=== PATIENT | male | born 1950 | race African-American/Black ===

== ENCOUNTER 2019-02-24 12:04 | Inpatient (IN) | payer MEDICARE, SELFPAY ==
[2019-02-24 12:42] VITALS: BP 130/77; PULSE 67; RESP 16; TEMP 37; BMI 30.2; BMI 30.3
[2019-02-24 13:47] VITALS: O2SAT 92
[2019-02-24 14:00] VITALS: BP 166/90; PULSE 80; RESP 16; TEMP 37.1
--- NOTE | 2019-02-24 14:20 | NEWVISION ---
Patient has D/C plan arranged by Vinh Pineda at [facility] on 03/05/2019 at 9am.
[2019-02-24 15:03] LABS: Absolute Lymphocyte Count 0.96 X10^3/ul (0.83-4.51); Absolute Neutrophil Count 2.6 X10^3/uL (2.0-7.7); Eosinophil# 0.18 X10^3/uL; Eosinophils% 4.4 % (0-5); Hematocrit 32.3 % (40-54); Hemoglobin 11.2 g/dl (13.0-16.5); Lymphocyte # 0.96 X10^3/ul (4.0); Lymphocyte % 23.5 % (19-41); Mean Corp Hgb Conc 34.7 g/gl (32-36); Mean Corpuscular Hgb 33.7 pg (27.0-32.0); Mean Corpuscular Volume 97.3 fL (80-94); Mean Platelet Vol. 10.1 fl (6.2-12.0); Monocyte# 0.37 X10^3/uL; Neutrophil # 2.57 X10^3/uL (2.7-7.7); Neutrophil % 62.9 % (47-70); Platelet Count 154 K/mm3 (150-450); RBC Distribution Width SD 47.5 fl (35.1-43.9); Red Blood Count 3.32 M/mm3 (4.6-6.2); White Blood Count 4.1 K/mm3 (4.4-11.0)
[2019-02-24 15:08] LABS: International Normalized Ratio 1.1; Prothrombin Time (Protime)PT. 14.3 SECONDS (11.7-14.9)
[2019-02-24 15:10] LABS: POSITIVE COUNT NO; POSITIVE DIFFERENTIAL NO; POSITIVE MORPHOLOGY NO
[2019-02-24 15:45] LABS: ALB/GLOB Ratio 0.7 RATIO (0.9-2.4); AST(SGOT) 45 U/L (15-37); Alanine Aminotransfer ALT/SGPT 37 U/L (16-61); Alkaline Phosphatase 74 U/L (45-117); Anion Gap 7 (5-15); BUN 32 mg/dL (7-18); Calcium,Total 7.9 mg/dL (8.5-10.1); Chloride 112 mmol/L (98-107); Creatinine, Serum 2.66 mg/dL (0.70-1.30); EST Glomerular Filtration Rate 25 mL/min (>60); Est Glom Filt Rate - Afr Amer 31 mL/min (>60); Estimated Creatinine Clearance 29.62 ml/min; Globulin 4.3 g/dL (2.2-4.2); Glucose 118 mg/dL (74-106); Potassium 3.8 mmol/L (3.5-5.1); Protein, Total 7.3 g/dL (6.4-8.2); Sodium Level 139 mmol/L (136-145)
--- NOTE | 2019-02-24 15:49 | EKG12_ITS ---
Test Reason : ADMISSION EKG Blood Pressure : / mmHG Vent. Rate : 061 BPM Atrial Rate : 061 BPM P-R Int : 216 ms QRS Dur : 096 ms QT Int : 430 ms P-R-T Axes : 046 011 022 degrees QTc Int : 432 ms Sinus rhythm with 1st degree A-V block Minimal voltage criteria for LVH, may be normal variant Borderline ECG Confirmed by SHERIF RIDDLE, ZOIE ([id number]), greeting card editor PRESTON BEST ([id number]) on 03/02/2019 1:54:16 PM Referred By: GALE Confirmed By:ZOIE GORMAN MD
--- NOTE | 2019-02-24 16:20 | NEWVISION ---
REPORT CALLED TO CONCEPCION CLEMENTS RN WITH NO QUESTIONS VOICED. PT TRANSFERRED TO [id number] VIA BED WITH ALL BELONGINGS. HOME MEDS SENT UP WITH DRY CHAIN WORKER.
[2019-02-24 16:22] LABS: HIV - WCH Non-Reactive (Nonreactive)
[2019-02-24 17:10] VITALS: BP 173/85; PULSE 69; RESP 18; TEMP 36.6
[2019-02-24 18:12] LABS: Bacteria 0 SEEN /hpf (None Seen); Mucous, Urine 0 SEEN /hpf (<or=2+); Red Blood Cells-Urine 0 SEEN /hpf (0-5)
[2019-02-24 18:16] LABS: Color, Urine Yellow (Yellow); Glucose, Dipstick Normal (Normal); Ketone-Dipstick Negative (Negative); Leukocyte Esterase-Dipstick Negative /ul (Negative); Nitrite-Dipstick Negative (Negative); Occult Blood-Urine Negative /ul (Negative); Protein-Dipstick 15 mg/dl (Negative); Urine Bilirubin Dipstick Negative (Negative); Urine Clarity Clear (Clear); Urine Urobilinogen 1 mg/dl (Normal)
[2019-02-24 18:29] LABS: Hyaline Cast 0-5 SEEN /lpf (0-5)
[2019-02-24 18:30] LABS: Squamous Epithelial Cells - UA 0-5 SEEN /hpf (0-5); White Blood Cells 0-5 SEEN /hpf (0-5)
--- NOTE | 2019-02-24 18:56 | PCM.HP.STD ---
Problem List (1) Hypertension Status: Chronic (2) Opiate dependence Status: Chronic (3) Crack cocaine use Status: Chronic Comment: daily (4) Hepatitis C Status: Chronic (5) Renal failure Status: Acute Qualifiers: Renal failure chronicity: unspecified chronicity Qualified Code(s): N19 - Unspecified kidney failure Comment: no previous lab available (6) Nephrolithiasis Status: Acute (7) Macrocytic anemia Status: Chronic (8) Metabolic acidosis Status: Acute (9) Hyperlipidemia Status: Chronic (10) Tobacco dependence Status: Chronic (11) BPH (benign prostatic hyperplasia) Status: Chronic History of Present Illness Date of Admission: 02/24/19 Chief Complaint: Presented to the [facility] office at [facility] requesting inpatient admission for acute opiate withdrawal The patient is a 68 year old M with a past medical history of hypertension, hyperlipidemia, nephrolithiasis, BPH, hepatitis C, opiate dependence x40 years, daily crack cocaine use and tobacco dependence who presented to the [facility] office at [facility] on 02/24/2019 requesting inpatient admission for acute opiate withdrawal. He resides in [facility]. He uses approximately 1 g of heroin daily and also uses crack cocaine daily. Currently he is snorting the heroin but in the past has been an IV drug user and does have a history of hepatitis C. He complained of diarrhea to the [facility] rep and when he found out he was going to be admitted he excused to himself to go to the restroom and he has been somnolent since then. I suspect he used heroin in the restroom. He now tells me the diarrhea went away. He is also c/o of being sweaty. No nausea, no restlessness, no piloerection, no chills. He was eating when I entered his room and eating well. He did not appear to be in any discomfort. He has been to rehab a few times in the past but, not for several years. the longest he has ever been clean is 2 weeks and he went back to using because of being in the wrong place with the wrong people. He has not considered whether or not he would consider inpt rehab. He was nodding off over his dinner plate when I entered the room and he did not arouse to calling his name. I had to shake him. Past Medical History Past Medical History (Chronic Problems): Chronic Problems Hypertension (Chronic) Opiate dependence (Chronic) Crack cocaine use (Chronic) daily Hepatitis C (Chronic) Macrocytic anemia (Chronic) Hyperlipidemia (Chronic) Tobacco dependence (Chronic) BPH (benign prostatic hyperplasia) (Chronic) Allergies No Known Allergies Allergy (Verified 02/24/19 13:43) Home Medications: Ambulatory Orders Medication Instructions Recorded Amlodipine [Norvasc] 10 mg PO DAILY 02/24/19 Ammonium Lactate [Amlactin] 1 applic TOPICAL DAILY PRN 02/24/19 Atorvastatin Calcium [Lipitor] 80 mg PO QHS 02/24/19 Tamsulosin HCl 0.4 mg PO DAILY 02/24/19 Surgical History: - - tells me he had surgery to remove a kidney stone Psychiatric History: No pertinent psych hx Lives: Friends Smoking Status: Current every day smoker Tobacco Use: Cigarettes Alcohol: Occasional Drugs: Heroin, - - Crack cocaine - *Family History Maternal History Items: No pertinent history Paternal History Items: No pertinent history Review of Systems Constitutional: Denies: Chills, Fever, Weakness, Weight Change HEENT: Denies: Head Aches, Sinus Congestion, Sinus Drainage Cardiovascular: Denies: Chest Pain, Edema, Light Headedness, Palpitations Respiratory: Denies: Cough, Shortness of breath at rest, Sputum production Gastrointestinal: Reports: Diarrhea - resolved after he went into the restroom and can out obtunded and sleepy......suspect strongly that he used in the [place]. Denies: Abdominal Pain, Nausea, Vomiting Genitourinary: Denies: Dysuria Musculoskeletal: Denies: Joint Pain, Joint Tenderness Skin: Denies: Jaundice, Rash, Wounds Neurological: Denies: Focal weakness, Numbness, Tingling, Seizures Psychiatric: Denies: Anxiety, Depression, Homicidal Ideations, Suicidal Ideations Hematologic/ Lymphatic: Denies: Easy Bruising, Easy Bleeding, Hx of blood clot VTE Information - Inpt Only VTE Present on Admission: No VTE Mechan Device Prophylaxis: Knee High ASHTYN Hose VTE Pharm Prophylaxis ordered?: Yes Patient Problems: Active and Suspected Problems Renal failure (Acute) no previous lab available Nephrolithiasis (Acute) Metabolic acidosis (Acute) - Physical Exam General: Cooperative, No apparent distress, Well developed, Well nourished, Lethargic, - - difficult to arouse HEENT: Atraumatic, EOMI, Normocephalic, - - pupils are pinpoint but reactive Oral: Moist Mucosa Neck: Supple, No JVD, Trachea Midline Lungs: Rhonchi Cardiovascular: Regular rate, Regular Rhythm, Normal S1, Normal S2, No murmurs, No rub noted, No Gallop Abdomen: Bowel Sounds Present, Soft, Non Tender, Non-Distended Extremities: No clubbing, No cyanosis, No edema, Peripheral Pulses Normal Skin: No rashes, - - many scars form old track paredes and old cellulitis and abscesses Musculoskeletal: No Muscle Wasting Neurological: Cranial nerves II-XII grossly intact, Neuro grossly intact Psych/Mental Status: Normal Affect, Appropriate Vital Signs Temp Pulse Resp BP Pulse Ox 97.8 F 69 18 173/85 H 92 02/24/19 17:10 02/24/19 17:10 02/24/19 17:10 02/24/19 17:10 02/24/19 13:47 Oxygen Delivery Method Room Air Weight: 229 lb 8.019 oz Body Mass Index (BMI) 30.2 Intake and Output for Last 24 Hours 02/22/19 02/23/19 02/24/19 23:59 23:59 23:59 Output Total 0 / 0 Balance 0 / 0 Laboratory Tests Past 24 Hrs 02/24/19 02/24/19 02/24/19 14:40 14:40 14:40 WBC 4.1 L RBC 3.32 L Hgb 11.2 L Hct 32.3 L MCV 97.3 H MCH 33.7 H MCHC 34.7 RDW 14.0 RDW Differential 47.5 H Plt Count 154 MPV 10.1 Immature Gran % (Auto) 0.200 Neut % (Auto) 62.9 Lymph % (Auto) 23.5 [place] % (Auto) 9.0 Eos % (Auto) 4.4 Baso % (Auto) 0.0 Absolute Neuts (auto) 2.6 Absolute Lymphs (auto) 0.96 Total Counted Not Reportable PT 14.3 INR 1.1 Sodium 139 Potassium 3.8 Chloride 112 H Carbon Dioxide 20.0 L Anion Gap 7 BUN 32 H Creatinine 2.66 H Estim Creat Clear Calc 29.62 Est GFR (MDRD) Af Amer 31 L Est GFR (MDRD) Non-Af 25 L BUN/Creatinine Ratio 12.0 Glucose 118 H Calcium 7.9 L Total Bilirubin 0.40 AST 45 H ALT 37 Alkaline Phosphatase 74 Total Protein 7.3 Albumin 3.0 L Globulin 4.3 H Albumin/Globulin Ratio 0.7 L Urine Color Urine Clarity Urine pH Ur Specific [place] Urine Protein Urine Glucose (UA) Urine Ketones Urine Occult Blood Urine Nitrite Urine Bilirubin Urine Urobilinogen Ur Leukocyte Esterase Urine RBC Urine WBC Ur Squamous Epith Cells Urine Bacteria Hyaline Casts Urine Mucus HIV 1&2 Antibody 02/24/19 02/24/19 14:40 16:00 WBC RBC Hgb Hct MCV MCH MCHC RDW RDW Differential Plt Count MPV Immature Gran % (Auto) Neut % (Auto) Lymph % (Auto) [place] % (Auto) Eos % (Auto) Baso % (Auto) Absolute Neuts (auto) Absolute Lymphs (auto) Total Counted PT INR Sodium Potassium Chloride Carbon Dioxide Anion Gap BUN Creatinine Estim Creat Clear Calc Est GFR (MDRD) Af Amer Est GFR (MDRD) Non-Af BUN/Creatinine Ratio Glucose Calcium Total Bilirubin AST ALT Alkaline Phosphatase Total Protein Albumin Globulin Albumin/Globulin Ratio Urine Color Yellow Urine Clarity Clear Urine pH 5.0 Ur Specific [place] 1.020 Urine Protein 15 H Urine Glucose (UA) Normal Urine Ketones Negative Urine Occult Blood Negative Urine Nitrite Negative Urine Bilirubin Negative Urine Urobilinogen 1 H Ur Leukocyte Esterase Negative Urine RBC 0 SEEN Urine WBC 0-5 SEEN Ur Squamous Epith Cells 0-5 SEEN Urine Bacteria 0 SEEN Hyaline Casts 0-5 SEEN Urine Mucus 0 SEEN HIV 1&2 Antibody Non-Reactive Assessment/Plan All Active Problems Renal failure (Acute) Nephrolithiasis (Acute) Metabolic acidosis (Acute) Impressions 1. ? acute opiate withdrawal - suspect he used while on the [facility] campus when he excused himself to go to the 2. Heroin dependence 3. Daily crack cocaine use 4. Lab consistent with stage IV renal failure 5. Macrocytic anemia 6. Hypertension 7. Hyperlipidemia 8. BPH 9. History of nephrolithiasis 10. Tobacco dependence 11. Metabolic acidosis-likely secondary to chronic renal failure Admitted to the [facility] program Suboxone taper ordered Clonidine 0.1 mg BID no Benzo's post void residual and if > 250 insert a morillo cath US of the kidneys and the bladder in the AM Hydralazine PRN for increased BP's Lipid panel and a repeat BMP in the AM EKG shows mild first degree AVB I informed the patient that his lab is consistent with stage 4 renal failure and I suspect this is due to non-compliance with anti-hypertensives and Crack cocaine use. He was unaware that he had kidney disease. Email Marketing Assistant consult for recommendations on renal diet Code Visit Inpatient E&M: 83946 Init Hosp L3
[2019-02-24 19:40] LABS: Amphetamine Urine VISTA NEGATIVE (<1000 ng/mL); Barbiturate Urine VISTA NEGATIVE (< 200 ng/mL); Benzodiazepine Urine VISTA NEGATIVE (< 200 ng/mL); Cocaine Urine VISTA POSITIVE (< 300 ng/mL); Ecstacy Urine VISTA NEGATIVE (< 500 ng/mL); Methadone Urine VISTA NEGATIVE (< 300 ng/mL); PCP Urine VISTA NEGATIVE (< 25 ng/mL); THC Urine VISTA NEGATIVE (< 50 ng/mL); Vista UDS pH Range 5
[2019-02-24] MEDS: Buprenorphine HCl 2 MG TAB.SUBL SL (20:28)
[2019-02-24] MEDS: amLODIPine 10 MG Tablet PO (20:28)
[2019-02-24 20:32] VITALS: PULSE 60
[2019-02-24 22:00] VITALS: BP 152/83; PULSE 61; RESP 16; TEMP 36.9
[2019-02-24] MEDS: Atorvastatin Calcium 80 MG Tablet PO (22:14)
[2019-02-24] MEDS: Heparin Injection (Vial) 5,000 UNIT/ML VIAL 5000 UNIT SC (22:14)
[2019-02-24] MEDS: cloNIDine HCl 0.1 MG Tablet PO (22:14)
[2019-02-25] VITALS (11 sets, daily range): BP systolic 146–178; BP diastolic 60–97; PULSE 56–67; RESP 16–18; TEMP 37.1–37.6; O2SAT 96–97
[2019-02-25] MEDS: hydrOXYzine PAM 25 MG Capsule 50 MG PO ×2 (00:10→06:10)
[2019-02-25] MEDS: hydrALAZINE 25 MG Tablet PO ×3 (01:29→17:15)
[2019-02-25] MEDS: Buprenorphine HCl 2 MG TAB.SUBL SL ×3 (03:14→19:32)
[2019-02-25] MEDS: Heparin Injection (Vial) 5,000 UNIT/ML VIAL 5000 UNIT SC ×3 (05:40→21:31)
--- NOTE | 2019-02-25 05:55 | US_ITS ---
STUDY: RENAL ULTRASOUND - COMPLETE REASON FOR EXAM: Male, 68 years old. Abnormal labs TECHNIQUE: Ultrasound evaluation of the kidneys was performed with real-time and static fraire-scale imaging. COMPARISON: None. FINDINGS: RIGHT KIDNEY: Normal location of the right kidney, which is normal in size. The right kidney measures 10.3 cm. There is a normal cortex of the right kidney. The renal cortex measures 1.2 cm. There is a cyst within the superior pole of the right kidney measuring 2.6 x 2.7 x 2.5 cm. There are no right renal calculi. There is no right hydronephrosis. DISTAL RIGHT URETER: There is non-visualization of the distal right ureter. There is no demonstrated right ureterovesical junction calculus. There is a visualized right ureteral jet. LEFT KIDNEY: Normal location of the left kidney, which is normal in size. The left kidney measures 10.4 cm. There is heterogeneous echogenicity within the renal cortex and the medullary region with poor differentiation The renal cortex measures 1.3 cm.There are no left renal calculi. There is no left hydronephrosis. DISTAL LEFT URETER: There is non-visualization of the distal left ureter. There is no demonstrated left ureterovesical junction calculus. There is a visualized left ureteral jet. BLADDER: The distended urinary bladder has a volume of 83 ml. The empty urinary bladder has a volume of 5 ml. There is a normal wall thickness of the distended urinary bladder. There is no demonstrated mass within the urinary bladder. There are no demonstrated bladder calculi. There is a Rivera catheter within the bladder. US/Kidney and Bladder IMPRESSION: 2.6 x 2.7 x 2.5 cm cyst within the upper pole of the right kidney heterogeneous echogenicity within the left renal cortex and the medullary region with poor differentiation, this could represent pyelonephritis versus infiltrative process or mass. Artifact cannot be excluded but less likely. A CT abdomen and pelvis with and without contrast is recommended to further evaluate Rievra catheter within the bladder Electronically Signed: Hiram Okeefe, at 22:29 EDT Tel , Service support ,
[2019-02-25 08:09] LABS: Anion Gap 5 (5-15); BUN 23 mg/dL (7-18); BUN/Creat Ratio 12.6 RATIO (10-20); Calcium,Total 8.2 mg/dL (8.5-10.1); Chloride 114 mmol/L (98-107); Cholesterol 115 mg/dL (200); Creatinine, Serum 1.82 mg/dL (0.70-1.30); EST Glomerular Filtration Rate 39 mL/min (>60); Est Glom Filt Rate - Afr Amer 48 mL/min (>60); Estimated Creatinine Clearance 43.29 ml/min; Glucose 104 mg/dL (74-106); High Density Lipoprotein 59 mg/dL; Potassium 3.7 mmol/L (3.5-5.1); Sodium Level 143 mmol/L (136-145); Triglycerides 66 mg/dL; Very Low Density Lipoprotein 13 mg/dL (5-40)
[2019-02-25] MEDS: Ondansetron ODT 4 MG Tablet PO ×2 (09:14→15:18)
[2019-02-25] MEDS: amLODIPine 10 MG Tablet PO (10:42)
[2019-02-25] MEDS: Dicyclomine 10 MG Capsule PO ×2 (10:42→17:14)
[2019-02-25] MEDS: Tamsulosin HCl 0.4 MG Capsule PO ×2 (10:43→21:31)
[2019-02-25] MEDS: cloNIDine HCl 0.1 MG Tablet PO ×2 (11:47→21:31)
--- NOTE | 2019-02-25 16:37 | PN_ITS ---
Patient Problems: Active and Suspected Problems Renal failure (Acute) no previous lab available Nephrolithiasis (Acute) Metabolic acidosis (Acute) Subjective: All events of the past 24 hours of been reviewed. He has a low-grade fever with the most recent temp being 99.7. Blood pressures have been elevated and have ranged from 130/77-170 6/96. The most recent blood pressure is 149/72. He has had 2 doses of hydralazine 25 mg p.o. since midnight. All lab was personally reviewed. Creatinine is 1.82 today, down from 2.66 at admission. CO2 is 24 today, up from 20 yesterday. Total cholesterol is 115 with an LDL of 43 and an HDL of 59. Urine drug screen was positive for opiates and cocaine. HIV was nonreactive. Lab did not obtain enough blood to do a hepatitis panel and it was canceled. He is a very difficult stick. Morillo catheter was inserted last night for urine retention and the creat is better today. He had vomiting earlier in the day but, this has resolved. He denies diarrhea. He is having chills and sweats. - Physical Exam General: Alert, Cooperative Oral: Moist Mucosa Lungs: Clear to auscultation, Diminished Cardiovascular: Regular rate, Regular Rhythm, Normal S1, Normal S2, No Gallop Abdomen: Bowel Sounds Present, Soft, Non Tender, Non-Distended Extremities: No edema Skin: No rashes, - - mildly ndiaphoretic Neurological: Cranial nerves II-XII grossly intact, Neuro grossly intact Vital Signs Temp Pulse Resp BP Pulse Ox 99.7 F H 61 18 149/72 H 96 02/25/19 14:18 02/25/19 14:18 02/25/19 14:18 02/25/19 14:18 02/25/19 09:10 Oxygen Delivery Method Room Air Weight: 229 lb 8.019 oz Body Mass Index (BMI) 30.2 Intake and Output for Last 24 Hours 02/23/19 02/24/19 02/25/19 23:59 23:59 23:59 Intake Total 750 / 750 Output Total 0 / 1000 2900 / 2900 Balance 0 / -500 -2150 / -2150 Laboratory Tests Past 24 Hrs 02/24/19 02/24/19 02/25/19 16:00 16:00 07:20 Sodium 143 Potassium 3.7 Chloride 114 H Carbon Dioxide 24.0 Anion Gap 5 BUN 23 H Creatinine 1.82 H Estim Creat Clear Calc 43.29 Est GFR (MDRD) Af Amer 48 L Est GFR (MDRD) Non-Af 39 L BUN/Creatinine Ratio 12.6 Glucose 104 Calcium 8.2 L Triglycerides 66 Cholesterol 115 LDL Cholesterol 43 VLDL Cholesterol 13 HDL Cholesterol 59 Urine Color Yellow Urine Clarity Clear Urine pH 5.0 Ur Specific [place] 1.020 Urine Protein 15 H Urine Glucose (UA) Normal Urine Ketones Negative Urine Occult Blood Negative Urine Nitrite Negative Urine Bilirubin Negative Urine Urobilinogen 1 H Ur Leukocyte Esterase Negative Urine RBC 0 SEEN Urine WBC 0-5 SEEN Ur Squamous Epith Cells 0-5 SEEN Urine Bacteria 0 SEEN Hyaline Casts 0-5 SEEN Urine Mucus 0 SEEN Urine Opiates Screen POSITIVE H Urine Methadone Screen NEGATIVE Ur Barbiturates Screen NEGATIVE Ur Phencyclidine Scrn NEGATIVE Ur Amphetamines Screen NEGATIVE U Methamphetamin-MDMA NEGATIVE U Benzodiazepines Scrn NEGATIVE Urine Cocaine Screen POSITIVE H U Cannabinoids Screen NEGATIVE Ur Drug Screen Comment Medical Necessity - Tobacco Use Smoking Status: Current every day smoker Tobacco Use: Cigarettes Assessment/Plan All Active Problems Renal failure (Acute) Nephrolithiasis (Acute) Metabolic acidosis (Acute) Impressions 1. ? acute opiate withdrawal - suspect he used while on the [facility] campus when he excused himself to go to the 2. Heroin dependence 3. Daily crack cocaine use 4. Lab consistent with stage IV renal failure - is this chronic or new? no prior lab available on this gentleman 5. Macrocytic anemia 6. Hypertension 7. Hyperlipidemia 8. BPH with urine retention 9. History of nephrolithiasis 10. Tobacco dependence 11. Metabolic acidosis-likely secondary to renal failure - this has resolved with placement of the morillo catheter and improvement in the creat Continue Suboxone taper awaiting the results of the renal ultrasound -done this morning Increase the Flomax to BID and add Hytrin at HS for BPH and for better control of the BP Check a PSA I advised him that he is going to need to follow up with a sterilization tech in the future and possibly a urologist if he continues to retain urine with the increase in the Flomax and the addition of Hytrin Code Visit Inpatient E&M: [id number] Subs Hosp L2
[2019-02-25] MEDS: Acetaminophen 500 MG Tablet PO (17:14)
[2019-02-25 20:25] LABS: PSA,Total - Annual Screen 0.52 ng/mL (0.00-4.00)
[2019-02-25] MEDS: Doxazosin 1 MG Tablet 2 MG PO (21:31)
[2019-02-25] MEDS: Atorvastatin Calcium 80 MG Tablet PO (21:31)
[2019-02-26] MEDS: Buprenorphine HCl 2 MG TAB.SUBL SL ×3 (03:38→22:48)
[2019-02-26 03:48] VITALS: BP 122/68; PULSE 60; RESP 18; TEMP 36.8; O2SAT 96
[2019-02-26 08:52] VITALS: BP 123/69; PULSE 68; RESP 18; TEMP 36.7; O2SAT 100
[2019-02-26 08:55] VITALS: BP 123/69; PULSE 68; RESP 18; TEMP 36.7
[2019-02-26] MEDS: Tamsulosin HCl 0.4 MG Capsule PO ×2 (09:04→20:43)
[2019-02-26] MEDS: amLODIPine 10 MG Tablet PO (09:04)
[2019-02-26] MEDS: cloNIDine HCl 0.1 MG Tablet PO ×2 (09:04→20:43)
--- NOTE | 2019-02-26 10:47 | PCM.PROGNOTE ---
Patient Problems: Active and Suspected Problems Renal failure (Acute) no previous lab available Nephrolithiasis (Acute) Metabolic acidosis (Acute) Subjective: All events of the past 24 hours been reviewed. He is afebrile with stable vital signs. Blood pressure is well controlled today. Pulse ox is 96 to 100% on room air. Morillo was removed by nursing today without an order from me. It was inserted for urine retention. He has not voided since it was removed. No nausea or vomiting today but, poor intake PSAs is normal at 0.52. US showed no hydronephrosis but, he had a morillo. There is heterogeneous echogenicity within the renal cortex and the medullary region on the left kidney with poor differentiation.......radiologist recommends a CT scan to r/o an infiltrative process. - Physical Exam General: Alert, Cooperative, - - more listless today. C/O body aches. Tylenol has been ordered Oral: Moist Mucosa Lungs: Clear to auscultation Cardiovascular: Regular rate, Regular Rhythm, Normal S1, Normal S2, No Gallop Abdomen: Bowel Sounds Present, Soft, Non Tender, Non-Distended Extremities: No edema Skin: No rashes Neurological: Cranial nerves II-XII grossly intact, Neuro grossly intact Vital Signs Temp Pulse Resp BP Pulse Ox 98.1 F 68 18 123/69 H 100 02/26/19 08:55 02/26/19 08:55 02/26/19 08:55 02/26/19 08:55 02/26/19 08:52 Oxygen Delivery Method Room Air Weight: 229 lb 8.019 oz Body Mass Index (BMI) 30.2 Intake and Output for Last 24 Hours 02/24/19 02/25/19 02/26/19 23:59 23:59 23:59 Intake Total 1710 / 1710 480 / 480 Output Total 0 / 1000 3500 / 3500 215 / 215 Balance 0 / -500 -1790 / -1790 265 / 265 Laboratory Tests Past 24 Hrs 02/25/19 07:20 PSA Screen 0.52 Medical Necessity - Tobacco Use Smoking Status: Current every day smoker Tobacco Use: Cigarettes Assessment/Plan All Active Problems Renal failure (Acute) Nephrolithiasis (Acute) Metabolic acidosis (Acute) Impressions 1. ? acute opiate withdrawal - suspect he used while on the [facility] campus when he excused himself to go to the [place] 2. Heroin dependence 3. Daily crack cocaine use 4. Lab consistent with stage IV renal failure - is this chronic or new? no prior lab available on this gentleman 5. Macrocytic anemia 6. Hypertension 7. Hyperlipidemia 8. BPH with urine retention 9. History of nephrolithiasis 10. Tobacco dependence 11. Metabolic acidosis-likely secondary to renal failure - this has resolved with placement of the morillo catheter and improvement in the creat Continue Suboxone taper Recheck the Lab in the AM......consider CT abd and pelivs with contrast if the Creat is better post void residual and if > 250 will need to reinsert morillo and consult Dr. Ross. Can have the CT of the abd and pelvis as an OP when he follows up with PCP.
[2019-02-26 13:38] VITALS: BP 135/73; PULSE 64; RESP 18; TEMP 36.9
[2019-02-26] MEDS: Heparin Injection (Vial) 5,000 UNIT/ML VIAL 5000 UNIT SC ×2 (13:46→20:43)
[2019-02-26] MEDS: Acetaminophen 325 MG Tablet 650 MG PO ×2 (16:11→20:42)
[2019-02-26 17:45] VITALS: BP 128/72; PULSE 62; RESP 18; TEMP 36.8
--- NOTE | 2019-02-26 18:01 | NURSING ---
At start of shift pt. c/o pain in left foot d/t ASHTYN murphy and requested they be removed. Pt has refused all shift- but did accept afternoon heparin.
[2019-02-26 20:30] VITALS: BP 145/82; PULSE 60; RESP 24; TEMP 37.3
[2019-02-26] MEDS: Atorvastatin Calcium 80 MG Tablet PO (20:43)
[2019-02-26] MEDS: hydrOXYzine PAM 25 MG Capsule 50 MG PO (20:43)
[2019-02-26] MEDS: Doxazosin 1 MG Tablet 2 MG PO (20:43)
[2019-02-27 05:15] VITALS: BP 133/73; PULSE 52; RESP 18; TEMP 37.1
[2019-02-27] MEDS: Heparin Injection (Vial) 5,000 UNIT/ML VIAL 5000 UNIT SC ×2 (05:20→15:36)
[2019-02-27] MEDS: Acetaminophen 325 MG Tablet 650 MG PO ×2 (05:20→18:01)
[2019-02-27] MEDS: hydrOXYzine PAM 25 MG Capsule 50 MG PO ×2 (05:20→18:01)
[2019-02-27 06:46] LABS: Anion Gap 8 (5-15); BUN 22 mg/dL (7-18); BUN/Creat Ratio 13.2 RATIO (10-20); Calcium,Total 7.9 mg/dL (8.5-10.1); Chloride 113 mmol/L (98-107); Creatinine, Serum 1.67 mg/dL (0.70-1.30); EST Glomerular Filtration Rate 43 mL/min (>60); Est Glom Filt Rate - Afr Amer 53 mL/min (>60); Estimated Creatinine Clearance 47.18 ml/min; Glucose 117 mg/dL (74-106); Potassium 3.2 mmol/L (3.5-5.1); Sodium Level 144 mmol/L (136-145)
[2019-02-27 08:48] VITALS: BP 136/81; PULSE 52; RESP 18; TEMP 36.7
[2019-02-27] MEDS: Tamsulosin HCl 0.4 MG Capsule PO (08:57)
[2019-02-27] MEDS: amLODIPine 10 MG Tablet PO (08:58)
[2019-02-27] MEDS: cloNIDine HCl 0.1 MG Tablet PO (10:33)
--- NOTE | 2019-02-27 11:22 | CASEMGMT ---
Social Work Note Per RN CM Leigh Israel pt has Waiver Services and pt's CM is Teodora ([phone]). Lia Al SHAKE PACKER, PUBLIC RELATIONS SENIOR ASSOCIATE
[2019-02-27] MEDS: Buprenorphine HCl 2 MG TAB.SUBL SL (11:59)
--- NOTE | 2019-02-27 15:05 | DCINST_ITS ---
- Discharge Diagnoses Current Active Problems: Current Active and Chronic Problems Hypertension (Chronic) Opiate dependence (Chronic) Crack cocaine use (Chronic) daily Hepatitis C (Chronic) Renal failure (Acute) no previous lab available Nephrolithiasis (Acute) Macrocytic anemia (Chronic) Metabolic acidosis (Acute) Hyperlipidemia (Chronic) Tobacco dependence (Chronic) BPH (benign prostatic hyperplasia) (Chronic) You will use the following diet at home:: Other - low fat, low salt Your food should be the consistency of: Regular Your liquids should be the consistency of: Regular/Thin Discharge Activity: Return to Normal Activity Call your doctor if you observe: Fever of 101 or Higher, Inability to urinate, Shortness of breath, Dizziness, Fainting spells, Swelling in the ankles, Chest pain Instructions: Chronic Kidney Disease, Kidney Disease: Avoiding High-Sodium Foods, Benign Prostatic Hyperplasia, Malignant Hypertension Additional Instructions: 1. You have chronic kidney disease. I suspect this is due to long standing uncontrolled high blood pressure. You had acute on chronic kidney failure when you were admitted to the hospital because your prostate is large and it was restricting the flow of urine. You are now on 2 different medications to improve urine flow and you are no longer retaining urine. the kidney function has improved some since admission but.....the lab is still consistent with chronic failure. There are 5 stages of renal failure and you are in stage 3.....When you get to 5 you are going to need dialysis so it is very important to keep the BP very well controlled. You need to follow up with your primary care doctor regularly and ALWAYS take your medications as prescribed every day. 2. One of the blood pressure pills that I am sending you home on is Clonidine. This medication in addition to controlling BP will also help with withdrawal sx and cravings. You will take it twice a day and no more than twice a day. 3. Crack cocaine increases your blood pressure tremendously and this is a very dangerous drug for anyone but, angelic a person of your age. It is associated with strokes and heart attacks and heart failure and problems with the rhythm of the heart and sudden . I recommend you quit.......heroin is dangerous but, Crack is even worse. 4. Good luck to you.......I hope you are successful in your endeavors to get off drugs Allergies/Adverse Reactions: Allergies No Known Allergies Allergy (Verified 02/24/19 13:43) Medications to take at Discharge Ammonium Lactate [Amlactin] 1 applic TOPICAL DAILY PRN 02/24/19 Amlodipine [Norvasc] 10 mg PO DAILY #30 tab 02/27/19 Atorvastatin Calcium [Lipitor] 80 mg PO QHS #30 tab 02/27/19 Clonidine HCl [Catapres] 0.1 mg PO BID #60 tab 02/27/19 Doxazosin Mesylate [Cardura] 2 mg PO QHS #30 tab 02/27/19 Tamsulosin HCl [Flomax] 0.4 mg PO BID #60 cap 02/27/19 The following prescriptions were given: Doxazosin Mesylate [Cardura] 2 mg PO QHS #30 tab Prescription Printed Clonidine HCl [Catapres] 0.1 mg PO BID #60 tab Prescription Printed Tamsulosin HCl [Flomax] 0.4 mg PO BID #60 cap Prescription Printed Atorvastatin Calcium [Lipitor] 80 mg PO QHS #30 tab Prescription Printed Amlodipine [Norvasc] 10 mg PO DAILY #30 tab Prescription Printed Please follow up with your Primary Care Physician in: [place] Test Results: Test results from this visit will be discussed in further detail at your follow- up appointment, if applicable. Proposed Discharge Date: 02/27/19
--- NOTE | 2019-02-27 15:21 | DS.PCM_ITS ---
Discharge Date and Diagnosis - Problem List Patient Problems: Active and Suspected Problems Obstructive uropathy (Acute) Urine retention (Acute) Acute renal failure (Acute) Uncontrolled hypertension (Acute) Nephrolithiasis (Acute) Date of Admission: 02/24/19 Date of Discharge: 02/27/19 - Primary Discharge Diagnosis Active and Suspected Problems acute opiate withdrawal Obstructive uropathy (Acute) Urine retention (Acute) Acute renal failure (Acute) Uncontrolled hypertension (Acute) - Secondary Discharge Diagnosis Chronic Problems Chronic renal failure, stage 3 (moderate) (Chronic) Opiate dependence (Chronic) Crack cocaine use (Chronic) daily Hepatitis C (Chronic) Macrocytic anemia (Chronic) Hyperlipidemia (Chronic) Tobacco dependence (Chronic) BPH (benign prostatic hyperplasia) (Chronic) chronically uncontrolled HTN Hospital Course and Treatment Imaging Results: Clinical Impression(s) from Imaging Studies Renal Ultrasound 02/25/19 05:55 IMPRESSION: 2.6 x 2.7 x 2.5 cm cyst within the upper pole of the right kidney heterogeneous echogenicity within the left renal cortex and the medullary region with poor differentiation, this could represent pyelonephritis versus infiltrative process or mass. Artifact cannot be excluded but less likely. A CT abdomen and pelvis with and without contrast is recommended to further evaluate Rivera catheter within the bladder Electronically Signed: Hiram Maldonado, at 22:29 EDT Tel , Service support , none Operations: None Summary of Care Provided: The patient is a 68 year old M with a past medical history of hypertension, hyperlipidemia, nephrolithiasis (X1 episode), BPH, hepatitis C, opiate dependence x40 years, daily crack cocaine use and tobacco dependence who presented to the [facility] office at [facility] on 02/24/2019 requesting inpatient admission for acute opiate withdrawal. He resides in [facility]. He uses approximately 1 g of heroin daily and also uses crack cocaine daily. Currently he is snorting the heroin but in the past has been an IV drug user and does have a history of hepatitis C. He complained of diarrhea at admission and then had chills, diaphoresis and restlessness shortly after admission. He has been to rehab a few times in the past but, not for several years. The longest he has ever been clean is 2 weeks and he went back to using because of being in the wrong place with the wrong people. He had not considered whether or not he would consider inpt rehab. He was nodding off over his dinner plate when I entered the room and he did not arouse to calling his name. I had to shake him. I suspect when he excused himself to go to the rest room while in the [facility] office he may have snorted some heroin. He was admitted to the hospital and the [facility] protocol for acute opiate withdrawal was initiated. Routine lab at admission showed a decreased hemoglobin at 11.2 with an MCV of 97.3. Platelets were within normal limits and the WBC was mildly decreased at 4.1. Serum bicarb was low at 20 and the BUN was 32 with a creatinine of 2.66. We have no baseline labs on this gentleman as he is from [place] and has not seen his primary care physician recently nor did he know the primary care physician's name. PT was within normal limits. AST was mildly increased at 45 but the other LFTs were within normal limits. UA had no evidence of urinary tract infection and there were no casts. Urine drug screen was positive for cocaine and opiates. HIV was nonreactive. A post void residual was greater than 250 cc and a Rivera catheter was inserted. Follow-up lab the next day showed the creatinine had improved and was 1.82, down from 2.66 the preceding day. Flomax was increased to 0.4 mg twice daily and he was also started on doxazosin 2 mg p.o. nightly both for BPH and blood pressure. A renal ultrasound was obtained and showed normal size kidneys bilaterally. There was a 2.6 x 2.7 x 2.5 cm cyst within the upper pole of the right kidney. There was he terogeneous echogenicity within the left renal cortex and the medullary region with poor differentiation. The radiologist recommended a CT scan of the abdomen and pelvis with and without contrast to further evaluate. The Rivera catheter was discontinued on 02/26/2019 and the patient was able to urinate with no significant residual. Lab was rechecked on the date of discharge and the creatinine was 1.67 with a GFR of 43 which is consistent with stage III chronic renal failure. Potassium was low at 3.2 on that date and it was supplemented prior to discharge. A lipid panel was obtained and showed normal triglycerides, LDL of 43 and an HDL of 59. A PSA was normal at 0.52. On 02/27/2019 he had completed 72 hours of Suboxone and was stable with no nausea, vomiting, diarrhea, abdominal pain or diaphoresis. We elected not to do a CT of the abd with contrast due to the persistent elevation in the creat. I instructed him to follow up with his primary care doctor within the next 1 to 2 weeks. I also recommend he discuss with his doctor a referral to nephrology. Blood pressure was well controlled prior to discharge and his blood pressure on the morning of discharge ranged from 133/73-136/81. He was discharged home with prescriptions for 1 month worth of amlodipine 10 mg daily, atorvastatin 80 mg p.o. nightly, clonidine 0.1 mg p.o. twice daily, Cardura 2 mg p.o. nightly and tamsulosin 0.4 mg p.o. twice daily. I elected to keep him on Clonidine because it can help with control of cravings for opiates. He is mildly bradycardic at rest but the HR increases appropriately with exercise. Physical Exam General: Alert, Cooperative, appropriate. Lying in bed in NAD Oral: Moist Mucosa Lungs: Clear to auscultation Cardiovascular: Regular rate, Regular Rhythm, Normal S1, Normal S2, No Gallop Abdomen: Bowel Sounds Present, Soft, Non Tender, Non-Distended Extremities: No edema Skin: No rashes Neurological: Cranial nerves II-XII grossly intact, Neuro grossly intact This note was generated with [employer] [place] dictation software. It may contain incorrect words, spelling, and punctuation that were not noted in checking the note before signing. Patient Problems: Active and Suspected Problems Obstructive uropathy (Acute) Urine retention (Acute) Acute renal failure (Acute) Uncontrolled hypertension (Acute) Nephrolithiasis (Acute) - Physical Exam Vital Signs Temp Pulse Resp BP Pulse Ox 98.1 F 52 L 18 136/81 H 100 02/27/19 08:48 02/27/19 08:48 02/27/19 08:48 02/27/19 08:48 02/26/19 08:52 Oxygen Delivery Method Room Air Weight: 229 lb 8.019 oz Body Mass Index (BMI) 30.2 Intake and Output for Last 24 Hours 02/25/19 02/26/19 02/27/19 23:59 23:59 23:59 Intake Total 1710 / 1710 1780 / 1780 1025 / 1025 Output Total 3500 / 3500 515 / 515 700 / 700 Balance -1790 / -1790 1265 / 1265 325 / 325 Laboratory Tests Past 24 Hrs 02/27/19 05:58 Sodium 144 Potassium 3.2 L Chloride 113 H Carbon Dioxide 23.0 Anion Gap 8 BUN 22 H Creatinine 1.67 H Estim Creat Clear Calc 47.18 Est GFR (MDRD) Af Amer 53 L Est GFR (MDRD) Non-Af 43 L BUN/Creatinine Ratio 13.2 Glucose 117 H Calcium 7.9 L Discharge Activity: Return to Normal Activity Call your doctor if you observe: Fever of 101 or Higher, Inability to urinate, Shortness of breath, Dizziness, Fainting spells, Swelling in the ankles, Chest pain Home Medications: Medications to take at Discharge Ammonium Lactate [Amlactin] 1 applic TOPICAL DAILY PRN 02/24/19 Amlodipine [Norvasc] 10 mg PO DAILY #30 tab 02/27/19 Atorvastatin Calcium [Lipitor] 80 mg PO QHS #30 tab 02/27/19 Clonidine HCl [Catapres] 0.1 mg PO BID #60 tab 02/27/19 Doxazosin Mesylate [Cardura] 2 mg PO QHS #30 tab 02/27/19 Tamsulosin HCl [Flomax] 0.4 mg PO BID #60 cap 02/27/19 Following Prescrptions Were Given to Patient: Doxazosin Mesylate [Cardura] 2 mg PO QHS #30 tab Prescription Printed Clonidine HCl [Catapres] 0.1 mg PO BID #60 tab Prescription Printed Tamsulosin HCl [Flomax] 0.4 mg PO BID #60 cap Prescription Printed Atorvastatin Calcium [Lipitor] 80 mg PO QHS #30 tab Prescription Printed Amlodipine [Norvasc] 10 mg PO DAILY #30 tab Prescription Printed Please follow up with your Primary Care Physician in: [place] Patient Instructions: Kidney Disease: Avoiding High-Sodium Foods, Chronic Kidney Disease, Malignant Hypertension, Benign Prostatic Hyperplasia Disposition: Home Minutes spent on discharge:: 35 Patient Condition:: Stable Medical Necessity - Tobacco Use Smoking Status: Current every day smoker Tobacco Use: Cigarettes Meaningful Use Info Meaningful Use Diagnoses (Choose all that apply): None applicable Code Visit Inpatient E&M: 15423 Disch Hosp
[2019-02-27 15:29] VITALS: BP 136/74; PULSE 63; RESP 18; TEMP 36.9
[2019-02-27 19:30] VITALS: BP 130/67; PULSE 64; RESP 20; TEMP 36.7; O2SAT 97
== END 2019-02-27 19:06 | disposition home or self-care (01) | DRG 897 ==
LOC: PCU 13:04 → MS3 16:17
PROVIDERS: Admitting Provider Internal Medicine; Visit Provider Internal Medicine
DX: F11.23 Opioid dependence with withdrawal (principal); E87.2 Acidosis; N17.9 Acute kidney failure, unspecified; F17.210 Nicotine dependence, cigarettes, uncomplicated; Z87.442 Personal history of urinary calculi; E78.5 Hyperlipidemia, unspecified; F14.90 Cocaine use, unspecified, uncomplicated; D53.9 Nutritional anemia, unspecified; N40.1 Benign prostatic hyperplasia with lower urinary tract symptoms; R33.8 Other retention of urine; N18.3 Chronic kidney disease, stage 3 (moderate); I12.9 Hypertensive chronic kidney disease with stage 1 through stage 4 chronic kidney disease, or unspecified chronic kidney disease; B19.20 Unspecified viral hepatitis C without hepatic coma
CPT/HCPCS: 36415; 76770; 80048; 80053; 80061; 80307; 81001; 84153; 85025; 85610; 86703; 93005; 97802; G0103